=== PATIENT | female | born 1970 | race Caucasian/White ===

== ENCOUNTER → 2020-06-25 | Outpatient (CLI) | payer BC ==
--- NOTE | 2020-06-25 14:37 | RAD ---
EXAM: Left lower extremity venous Doppler sonogram. HISTORY: Pain and swelling. TECHNIQUE: Lomeli scale and color Doppler sonographic evaluation of the left lower extremity veins with spectral waveform analysis was performed. FINDINGS: The distal superficial femoral vein in the calf veins are not well seen due to to patient b rodney habitus. There is normal color flow, normal compressibility and there are normal spectral wavefor ms in the remainder of the lower extremity veins. IMPRESSION: No Doppler evidence of lower extremity deep venous thrombosis, with limited evaluation of the distal superficial femoral vein and calf veins due to body habitus. Electronically signed by: Aliyah Gibson MD (06/25/2020 2:34 PM) [facility]
--- NOTE | 2020-06-28 18:06 | RAD ---
DATE: 06/25/2020 EXAM: DIGITAL SCREEN BILAT W/CAD HISTORY: Screening COMPARISON: 07/04/2018, 07/02/2017, 03/11/2016 This study was interpreted with the benefit of Computerized Aided Detection (CAD). Breast Density: SCATTERED The breast parenchyma shows scattered fibroglandular densities. Breast parenchyma level B. FINDINGS: No mass, suspicious calcification, or architectural distortion in either breast. IMPRESSION: No evidence of malignancy. BI-RADS CATEGORY: 1 NEGATIVE RECOMMENDED FOLLOW-UP: 12M 12 MONTH FOLLOW-UP PQRS compliance statement: Patient information was entered into a reminder system with a target due date for the next mammogram. Mammography is a sensitive method for finding small breast cancers, but it does not detect them all and is not a substitute for careful clinical examination. A negative mammogram does not negate a clinically suspicious finding and should not result in delay in biopsying a clinically suspicious abnormality. "Our facility is accredited by the [employer] Mammography Program."
== END ==
LOC: MAMMO 13:12
PROVIDERS: ATTEND Family Medicine
DX: Z12.31 Encounter for screening mammogram for malignant neoplasm of breast (principal); R60.0 Localized edema
CPT/HCPCS: 77067; 93971

== ENCOUNTER → 2020-08-13 | Outpatient (CLI) | payer BC ==
--- NOTE | 2020-08-14 10:37 | CARD ---
MR#: [id number] Date of Study: 08/13/2020 Ordering Physician: LYNNE PAVON, Referring Physician: LYNNE PAVON, Tech: Annetta Scott, [facility] APPROVED REPORT EXAM: Two-dimensional and M-mode echocardiogram with Doppler and color Doppler. Other Information Quality : AverageHR: 58bpm INDICATION Dyspnea Edema RISK FACTORS Hypertension Hyperlipidemia 2D DIMENSIONS Left Atrium(2D)3.9 (1.6-4.0cm)IVSd1.1 (0.7-1.1cm) Aortic Root(2D)3.4 (2.0-3.7cm)LVDd5.3 (3.9-5.9cm) LVOT Diameter2.0 (1.8-2.4cm)PWd1.0 (0.7-1.1cm) LVDs2.8 (2.5-4.0cm)FS (%) 46.4 % SV105.2 ml Aortic Valve AoV Peak Dagoberto.198.3cm/sAoV VTI43.6cm AO Peak GR.15.7mmHgLVOT Peak Dagoberto.144.7cm/s LVOT VTI 36.61cmAO Mean GR.9mmHg GENET (VMAX)2.84ml0SDG (VTI)2.75cm2 AI P 1/2 [id number] Mitral Valve MV E Qntamudv17.9cm/sMV DECEL [id number] MV A Vozbauft86.3cm/sE/A Ratio1.3 Pulmonary Valve PV Peak Jfpeoosl31.3cm/sPV Peak Grad.3mmHg Tricuspid Valve TR P. Bumouvdq567xt/sRAP IAKGNBUU2ofOn TR Peak Gr.85wqIvTBOI50oaVw Pulmonary Vein S1 Mfypghqi13.6cm/sD2 Zutusdij55.2cm/s LEFT VENTRICLE The left ventricle is normal size. There is borderline concentric left ventricular hypertrophy. The l eft ventricular systolic function is normal. The Ejection Fraction is 50-55%. There is normal LV segm ental wall motion. The left ventricular diastolic function and filling is normal for age. RIGHT VENTRICLE The right ventricle is normal size. There is normal right ventricular wall thickness. The right ventr icular systolic function is normal. ATRIA The left atrium is mildly dilated. The right atrium size is normal. The interatrial septum is intact with no evidence for an atrial septal defect or patent foramen ovale as noted on 2-D or Doppler imagi ng. AORTIC VALVE The aortic valve is normal in structure and function. Doppler and Color Flow revealed no significant aortic regurgitation. There is no significant aortic valvular stenosis. Calculated aortic valve area is 2.7 cm2 with maximum pressure gradient of 16 mmHg and mean pressure gradient of 9 mmHg. MITRAL VALVE The mitral valve is normal in structure and function. There is no evidence of mitral valve prolapse. There is no mitral valve stenosis. Doppler and Color-flow revealed trace mitral regurgitation. TRICUSPID VALVE The tricuspid valve is normal in structure and function. Doppler and Color Flow revealed trace tricus pid regurgitation with an estimated PAP of 36 mmHg. There is no tricuspid valve stenosis. PULMONIC VALVE The pulmonic valve is not well visualized. Doppler and Color Flow revealed no pulmonic valvular regur gitation. GREAT VESSELS The aortic root is normal in size. The ascending aorta is normal in size. The IVC is dilated. PERICARDIAL EFFUSION There is no evidence of significant pericardial effusion. Critical Notification Critical Value: No <Conclusion> The left ventricle is normal size. The left ventricular systolic function is normal. The Ejection Fraction is 50-55%. There is borderline concentric left ventricular hypertrophy. Doppler and Color Flow revealed no significant aortic regurgitation. There is no significant aortic valvular stenosis. Doppler and Color-flow revealed trace mitral regurgitation. Doppler and Color Flow revealed trace tricuspid regurgitation with an estimated PAP of 36 mmHg. Signed by : Elmer Morrissey MD Electronically Approved : 08/14/2020 10:37:01
== END ==
LOC: ECHO 12:56
PROVIDERS: ATTEND Family Medicine
DX: R22.42 Localized swelling, mass and lump, left lower limb (principal); I51.7 Cardiomegaly
CPT/HCPCS: 93306